=== PATIENT | female | born 1940 | race Caucasian/White ===

== ENCOUNTER → 2017-01-03 | Outpatient (CLI) | payer BC ==
--- NOTE | 2017-01-03 15:21 | MAMMOGRAPHY REPORT ---
BILATERAL DIGITAL SCREENING MAMMOGRAM WITH CAD: 01/03/2017 TECHNIQUE: Bilateral CC, MLO and left XCCL views were obtained. Current study was also evaluated wi th a Computer Aided Detection (CAD) system. COMPARISON: Comparison is made to exams dated: 12/30/2015 mammogram, 12/26/2013 mammogram, 12/24/2012 m ammogram, 12/21/2011 mammogram, 12/17/2009 mammogram - [facility], and 12/15/2008. BREAST COMPOSITION: There are scattered areas of fibroglandular density in both breasts. FINDINGS: Grouped punctate microcalcifications in the upper outer middle one third of the left breas t are unchanged dating back to at least 12/14/2007, therefore likely benign. No suspicious mass, ar chitectural distortion or cluster of new, suspicious microcalcifications is seen. IMPRESSION: ACR BI-RADS CATEGORY 1: NEGATIVE There is no mammographic evidence of malignancy. A 1 year screening mammogram is recommended. The p atient will receive written notification of the results. Approximately 10% of breast cancers are not detected with mammography. A negative mammographic repor t should not delay biopsy if a clinically suggestive mass is present. Jerilyn Dudley M.D. ay/:01/03/2017 12:41:19 [employer]le Catal[employer] Maker: Dunia MEEKS(Vamshi)(M), [facility] letter sent: Normal 1/2 BI-RADS Code: ACR BI-RADS Category 1: Negative
== END | disposition home or self-care (01) ==
LOC: C.MAMM 09:00
PROVIDERS: ATTEND Family Medicine
DX: Z12.31 Encounter for screening mammogram for malignant neoplasm of breast (principal)

== ENCOUNTER → 2018-01-05 | Outpatient (CLI) | payer BC ==
--- NOTE | 2018-01-08 15:18 | MAMMOGRAPHY REPORT ---
BILATERAL DIGITAL SCREENING MAMMOGRAM TOMOSYNTHESIS WITH CAD: 01/05/2018 CLINICAL HISTORY: Routine screening. Patient has no complaints. TECHNIQUE: Breast tomosynthesis in addition to standard 2D mammography was performed. Current study was also evaluated with a Computer Aided Detection (CAD) system. COMPARISON: Comparison is made to exams dated: 01/03/2017 mammogram, 12/30/2015 mammogram, 12/29/2014 mamm ogram, 12/26/2013 mammogram, 12/24/2012 mammogram, and 12/21/2011 mammogram - [facility] er. BREAST COMPOSITION: There are scattered areas of fibroglandular density in both breasts. FINDINGS: No suspicious masses, calcifications, or areas of architectural distortion are noted in ei ther breast. There has been no significant interval change compared to prior exams. Bilateral benign -appearing calcifications are not significantly changed, including grouped punctate calcifications in the left upper outer quadrant which are stable dating back to at least the 2008 exam. IMPRESSION: ACR BI-RADS CATEGORY 2: BENIGN There is no mammographic evidence of malignancy. A 1 year screening mammogram is recommended. The pa tient will receive written notification of the results. Approximately 10% of breast cancers are not detected with mammography. A negative mammographic report should not delay biopsy if a clinically suggestive mass is present. Maria De Jesus Manzanares M.D. /:01/05/2018 15:07:08 Fixed Income Analyst: Diandra ZULUAGA)(Becky), [facility] letter sent: Normal 1/2 BI-RADS Code: ACR BI-RADS Category 2: Benign
== END | disposition home or self-care (01) ==
LOC: C.MAMM 08:34
PROVIDERS: ATTEND Physician Assistant
DX: Z12.31 Encounter for screening mammogram for malignant neoplasm of breast (principal)